=== PATIENT | male | born 1975 | race Two or more races ===

== ENCOUNTER 2024-01-09 23:05 | Inpatient (IN) | payer MEDICAID, OTHER ==
[~2024-01-09] VITALS: Ht 180.3 cm; Wt 77.5 kg
[2024-01-09 23:46] LABS: Basophils # (auto) 0 10 ^3/uL (0-0.2); Basophils % (auto) 0.3 % (0.0-2.0); Eosinophils # (auto) 0.4 10 ^3/uL (0-0.8); Eosinophils % (auto) 6.4 % (0.0-7.0); Hematocrit 38.5 % (41.0-53.0); Hemoglobin 13.5 g/dL (13.5-17.5); Lymphocytes # (auto) 1.2 10 ^3/uL (0.4-5.4); Lymphocytes % (auto) 19.1 % (10.0-50.0); Mean Corpuscular Volume 105.5 fL (80.0-100.0); Monocytes # (auto) 0.5 10 ^3/uL (0-1.3); Monocytes % (auto) 8.6 % (0.0-12.0); Neutrophils % (auto) 65.6 % (37.0-80.0); Nucleated Red Blood Cells % 0.2 %; Red Blood Cells 3.65 10^6/uL (4.5-5.90); Red Cell Distribution Width 15.1 % (11.8-14.3); White Blood Cell 6.1 10^3/uL (4.4-10.8)
[2024-01-10 00:01] LABS: Alanine Aminotransferase 22 U/L (7-40); Albumin 4.1 g/dL (3.2-4.8); Alkaline Phosphatase 225 U/L (46-116); Anion Gap 12 (5-15); Aspartate Aminotransferase 20 U/L (13-40); BUN/Creatinine Ratio 11.6 (10.0-20.0); Bilirubin, Total 0.4 mg/dL (0.2-1.0); Blood Urea Nitrogen 10 mg/dL (9-23); Calcium 9.7 mg/dL (8.7-10.4); Carbon Dioxide 21 mmol/L (20-30); Chloride 104 mmol/L (98-107); Glucose 165 mg/dL (74-106); Sodium 137 mmol/L (136-145); Total Protein 6.9 g/dL (5.7-8.2)
[2024-01-10 00:03] LABS: Potassium 2.5 mmol/L (3.5-5.1)
[2024-01-10] MEDS ORDERED: POTASSIUM EFFERVESENT TAB 25 MEQ GT ONE (00:45)
[2024-01-10 01:20] LABS: Urine Bacteria NONE SEEN /hpf (None Seen); Urine Blood Negative /uL (Negative); Urine Clarity Clear (Clear); Urine Color Yellow (Yellow); Urine Hyaline Cast FEW /lpf (0 - 2); Urine Mucus FEW (None Seen); Urine Protein, UAD 1+ (Negative); Urine WBC 2 /hpf (0 - 3); Urine pH 6.5 (5.0-9.0)
[2024-01-10] MEDS: SODIUM CHLORIDE 0.9% 1,000 ML IV ONE (02:06)
[2024-01-10 02:07] LABS: Amphetamine Screen, Urine Neg (NEGATIVE); Barbiturate Scree,Urine Neg (NEGATIVE); Benzodiazephine Screen, Urine Neg (NEGATIVE); Cocaine Screen, Urine Pos (NEGATIVE); Opiate Scree,Urine Pos (NEGATIVE)
[2024-01-10 02:08] LABS: Cannabinoid Screen, Urine Neg (NEGATIVE); Phencyclidine Screen, Urine Neg (NEGATIVE)
[2024-01-10] MEDS: POTASSIUM CHL 20 Meq TABLET PO ONE ×2 (02:09→12:36)
[2024-01-10] MEDS: MAGNESIUM SULFATE 1GM/100ML 100 ML IV SCH (02:09)
[2024-01-10] MEDS: POTASSIUM EFFERVESENT TAB 25 MEQ PO ONE (02:27)
[2024-01-10] MEDS: cefTRIAXone 1GM/50ML D5W 50 ML IV ONE ×2 (04:45→10:02)
[2024-01-10] MEDS: IOHEXOL 350 MG/ML 100ML IJ ONE (04:46)
[2024-01-10] MEDS: AZITHROMYCIN 500MG/ 250ML 250 ML IV ONE ×2 (05:27→10:02)
[2024-01-10] MEDS: MICAFUNGIN SODIUM 100 MG in SODIUM CHL 0.9% 100 ML IV ONE (05:27)
[2024-01-10 05:30] VITALS: PULSE 79; RESP 10; O2SAT 97
[2024-01-10 07:30] VITALS: PULSE 85; RESP 11; O2SAT 94
[2024-01-10] MEDS ORDERED: DOCUSATE SOD 100 MG CAP PO PRN (09:30)
[2024-01-10] MEDS ORDERED: ONDANSETRON HCL 4 MG/2 ML VIAL IV PRN (09:30)
[2024-01-10] MEDS ORDERED: MORPHINE SULFATE INJ 2 MG/ml SYRG IV PRN (09:30)
[2024-01-10] MEDS: AZITHROMYCIN 500MG/ 250ML 250 ML IV SCH (10:00)
[2024-01-10] MEDS: ENOXAPARIN SOD 40 MG/0.4 ML SYRINGE SC SCH (10:00)
[2024-01-10 10:06] LABS: Magnesium 2.5 mg/dL (1.6-2.6)
[2024-01-10 10:08] LABS: Phosphorus 0.6 mg/dL (2.4-5.1)
[2024-01-10] MEDS: SODIUM CHLORIDE 0.9% 1,000 ML IV SCH (10:28)
[2024-01-10] MEDS: POTASSIUM PHOSPHATE 44 MEQ in D5W 5% 250 ML IV ONE (14:19)
[2024-01-10 22:17] VITALS: PULSE 91; RESP 12; O2SAT 93
[2024-01-10 23:50] VITALS: BP 93/57; PULSE 81; RESP 18; RESP 20; TEMP 97.8; O2SAT 100
[2024-01-11] MEDS ORDERED: ALBU108A5 IN (02:29)
[2024-01-11 05:00] VITALS: BP 92/52; PULSE 75; RESP 20; TEMP 96.2; O2SAT 100
[2024-01-11 05:48] LABS: Basophils # (auto) 0 10 ^3/uL (0-0.2); Hemoglobin 11.2 g/dL (13.5-17.5); Mean Corpuscular Hgb Conc. 34.3 g/dL (32.0-36.0)
[2024-01-11 05:50] LABS: Basophils % (auto) 0.6 % (0.0-2.0); Eosinophils # (auto) 0.5 10 ^3/uL (0-0.8); Eosinophils % (auto) 10.3 % (0.0-7.0); Hematocrit 32.5 % (41.0-53.0); Lymphocytes # (auto) 1.6 10 ^3/uL (0.4-5.4); Lymphocytes % (auto) 34.6 % (10.0-50.0); Mean Corpuscular Hemoglobin 36.5 pg (28.0-32.0); Mean Corpuscular Volume 106.3 fL (80.0-100.0); Monocytes # (auto) 0.5 10 ^3/uL (0-1.3); Neutrophils % (auto) 43.5 % (37.0-80.0); Nucleated Red Blood Cells % 0.2 %; Red Blood Cells 3.06 10^6/uL (4.5-5.90); Red Cell Distribution Width 15.3 % (11.8-14.3); White Blood Cell 4.7 10^3/uL (4.4-10.8)
[2024-01-11 06:08] LABS: Alanine Aminotransferase 24 U/L (7-40); Albumin 3.3 g/dL (3.2-4.8); Alkaline Phosphatase 158 U/L (46-116); Anion Gap 9 (5-15); Aspartate Aminotransferase 23 U/L (13-40); BUN/Creatinine Ratio 9.9 (10.0-20.0); Bilirubin, Total 0.3 mg/dL (0.2-1.0); Blood Urea Nitrogen 7 mg/dL (9-23); Calcium 8.6 mg/dL (8.5-10.1); Carbon Dioxide 21 mmol/L (20-30); Chloride 109 mmol/L (98-107); Glucose 89 mg/dL (74-106); Potassium 3.8 mmol/L (3.5-5.1); Sodium 139 mmol/L (136-145); Total Protein 5.3 g/dL (5.7-8.2)
[2024-01-11 08:00] VITALS: BP 92/52; PULSE 75; RESP 18; TEMP 97.8; O2SAT 99
[2024-01-11 08:34] VITALS: BP 96/62; PULSE 79; RESP 20; TEMP 98.8; O2SAT 94
[2024-01-11] MEDS: cefTRIAXone 1GM/50ML D5W 50 ML IV SCH (09:10)
[2024-01-11] MEDS ORDERED: DOXY-286 PO (10:52)
[2024-01-11] MEDS ORDERED: LEVO750T40 PO (10:53)
[2024-01-11 12:40] VITALS: BP 84/60; PULSE 79; RESP 20; TEMP 97.7; O2SAT 100
[2024-01-11 15:47] VITALS: BP 103/72; PULSE 75; RESP 16; TEMP 36.5; O2SAT 98
[2024-01-11 16:30] VITALS: BP 91/57; PULSE 63; RESP 18; TEMP 98.6; O2SAT 99
[2024-01-12 09:01] LABS: Hepatitis B Surface Antigen Negative (Negative)
[2024-01-12 09:23] LABS: Hepatitis C Antibody Negative (Negative)
[2024-01-12 13:07] LABS: QuantiFERON-TB Gold Plus Negative (Negative)
== END 2024-01-11 18:58 | disposition home or self-care (01) | DRG 137 ==
LOC: ER 23:05 → WEST WING 01-10 10:33 → OVERFLOW 01-10 10:33 → WEST WING 01-10 22:50
PROVIDERS: ADMIT Internal Medicine Pulmonary Disease; ATTEND Internal Medicine Pulmonary Disease
DX: J15.69 Pneumonia due to other Gram-negative bacteria (principal); E83.39 Other disorders of phosphorus metabolism; K76.0 Fatty (change of) liver, not elsewhere classified; C34.90 Malignant neoplasm of unspecified part of unspecified bronchus or lung; R16.0 Hepatomegaly, not elsewhere classified; J15.9 Unspecified bacterial pneumonia; E87.6 Hypokalemia; F14.10 Cocaine abuse, uncomplicated; R91.1 Solitary pulmonary nodule; R63.4 Abnormal weight loss; E87.5 Hyperkalemia; R73.9 Hyperglycemia, unspecified; J45.909 Unspecified asthma, uncomplicated; Z87.891 Personal history of nicotine dependence; Z68.23 Body mass index [BMI] 23.0-23.9, adult; Z88.0 Allergy status to penicillin
CPT/HCPCS: 36415; 71045; 71260; 74177; 80053; 80307; 81001; 82378; 83036; 83735; 84100; 84132; 84484; 85025; 86304; 86703; 86803; 87340; 93005; 96365; 96366; 96367; 96368; G0378; J2248; J7060